=== PATIENT | male | born 1995 | race Caucasian/White ===

== ENCOUNTER 2018-10-28 22:51 | Emergency (ER) | payer BC ==
[~2018-10-28] VITALS: Ht 172.7 cm; Wt 77.1 kg
[~2018-10-28 22:51] MED LIST: NOHOMEMEDICATIONS; PEPCID AC20 M1 PO; PHENERGAN 25 MG25 M1 PO; ZOFRAN4 MG PO
[2018-10-28 23:20] LABS: MCH 29.9 pg (26.0-34.0); MCV 85.5 fL (80.0-100.0); MPV 8.7 fl. (7.2-11.1); NUCLEATED RBCS 0 /100WBC; PLATELET COUNT* 170 thou/uL (150-400); RBC 6.67 mil/uL (4.50-6.00); RDW-CV 13.3 % (10.5-14.5); WBC 10.7 thou/uL (4.0-11.0)
[2018-10-28 23:24] LABS: ALBUMIN 5.1 g/dL (3.4-5.0); CALCIUM 9.9 mg/dL (8.5-10.1); CREATININE 1.3 mg/dL (0.6-1.3); POTASSIUM 4.3 mmol/L (3.5-5.1); TOTAL BILIRUBIN 2.9 mg/dL (<0.1-1.0); TOTAL PROTEIN 8.6 g/dL (6.4-8.2)
[2018-10-29 00:20] VITALS: BP 123/71
[2018-10-29 00:49] LABS: ABSOLUTE LYMPHOCYTES 0.3 thou/uL (0.8-5.3); ABSOLUTE MONOCYTES 0.3 thou/uL (0.0-1.2); ABSOLUTE NEUTROPHILS 10.1 thou/uL (1.6-8.1)
[2018-10-29 00:50] LABS: PLATELET ESTIMATE ADEQUATE
== END 2018-10-29 00:20 | disposition home or self-care (01) ==
LOC: M.ERS 22:51
PROVIDERS: Nurse Practitioner Family
DX: R11.2 Nausea with vomiting, unspecified (principal); R19.7 Diarrhea, unspecified